=== PATIENT | male | born 1970 | race Caucasian/White ===

== ENCOUNTER 2025-03-09 12:47 | Emergency (ER) | payer OTHER ==
[~2025-03-09] VITALS: Ht 180.3 cm; Wt 93.6 kg
[2025-03-09 12:55] VITALS: PULSE 72; RESP 20; TEMP 97.5; O2SAT 95
== END 2025-03-09 13:18 | disposition home or self-care (01) ==
LOC: FSED 13:00
DX: J34.89 Other specified disorders of nose and nasal sinuses (principal); I10 Essential (primary) hypertension; E78.5 Hyperlipidemia, unspecified; F17.210 Nicotine dependence, cigarettes, uncomplicated
CPT/HCPCS: 99284